=== PATIENT | male | born 1945 | race Caucasian/White ===

== ENCOUNTER → 2021-09-08 09:44 | Outpatient (CLI) | payer MEDICARE, OTHER, SELFPAY ==
--- NOTE | 2021-09-08 09:51 | XR_ITS ---
FINAL REPORT CLINICAL HISTORY: knee pain FINDINGS: 4 views of the right knee were obtained. There is no acute fracture or dislocation. There are mild degenerative changes. There is a questionable loose body posteriorly. IMPRESSION: Mild degenerative change with questionable posterior loose body. Reviewed, Interpreted and Dictated by Trent Marrero III, MD Transcribed by Fracisco Shaikh Authenticated and [facility]
--- NOTE | 2021-09-08 09:51 | XR_ITS ---
FINAL REPORT CLINICAL HISTORY: knee pain FINDINGS: 4 views of the left knee were obtained. There is no acute fracture or dislocation. There are mild degenerative changes. There is a presumed subchondral cyst in the lateral patella. The soft tissues are unremarkable. IMPRESSION: Mild degenerative change. Reviewed, Interpreted and Dictated by Trent Marrero III, MD Transcribed by Fracisco Shaikh Authenticated and [facility]
== END ==
PROVIDERS: PCP Family Medicine; Visit Provider Orthopaedic Surgery
DX: M25.561 Pain in right knee (principal); M25.562 Pain in left knee
CPT/HCPCS: 73564

== ENCOUNTER 2023-05-26 08:10 | Emergency (ER) | payer OTHER, SELFPAY ==
[2023-05-26 08:20] VITALS: BP 137/69; PULSE 89; RESP 20; TEMP 36.4; O2SAT 96; BMI 26.9
--- NOTE | 2023-05-26 08:48 | ED_ITS ---
Discharge Plan Disposition Patient Disposition: Home, Self-Care Condition: Good Prescriptions Prescriptions: New doxycycline monohydrate 100 mg tablet 100 mg PO BID Qty: 20 0RF methylprednisolone [Medrol ([place])] 4 mg tablets,dose pack 4 mg PO DIRECTED Qty: 21 0RF No Action hydrochlorothiazide 25 mg tablet 25 mg PO DAILY Patient Comments: TAKE 1 TABLET BY MOUTH DAILY losartan 100 mg tablet 100 mg PO DAILY Patient Comments: TAKE 1 TABLET BY MOUTH DAILY metoprolol tartrate 25 mg tablet 25 mg PO DAILY Patient Comments: TAKE 1 TABLET BY MOUTH DAILY Referrals Follow up/Referrals: Declan Parisi [Primary Care Provider] - See instructions Activity Restrictions/Add. Instructions Additional Instructions/Restrictions: Follow up with Dr Parisi if not improving Clinical Impressions Clinical Impression: Folliculitis Instructions Patient Instructions: DI for Folliculitis Discharge ED Provider: Sammie Bolden [facility] [place] HPI General Stated complaint: Rash on entire upper body Mode of Arrival: Ambulatory Source of Information: Patient Limitations: No Limitations Time Seen by Provider: 05/26/23 08:48 Description of Symptoms (Recalled from Triage Doc. by RN): PATIENT C/O RASH FORM THE WAIST UP THAT STARTED YESTERDAY MORNING HEENT Symptoms (Recalled from RN notes): No Resp Symptoms (Recalled from RN notes): No Skin Symptoms (Recalled from RN notes): Yes MS Symptoms (Recalled from RN notes): No Functional Status (Recalled from RN notes): WNL History of Present Illness Provider Complaint: Rash on trunk and arms X 1 day. It is itchy. No known new exposures. No fever or malaise. Onset (ago): day(s) (1) Location: chest and upper extremity Relieving factors: none Exacerbating factors: none Treatments prior to arrival: none Related Data Home Medications Medication Instructions Recorded Confirmed hydrochlorothiazide 25 mg tablet 25 mg PO DAILY 05/26/23 05/26/23 losartan 100 mg tablet 100 mg PO DAILY 05/26/23 05/26/23 metoprolol tartrate 25 mg tablet 25 mg PO DAILY 05/26/23 05/26/23 Previous Rx's Medication Instructions Recorded doxycycline monohydrate 100 mg 100 mg PO BID #20 tabs 05/26/23 tablet methylprednisolone 4 mg tablets in 4 mg PO DIRECTED #21 tabs 05/26/23 a dose pack (Medrol ([place])) Allergies Allergy/AdvReac Type Severity Reaction Status Date / Time No Known Allergies Allergy Unverified 09/08/21 10:32 Worker's Comp Is this a Worker's Comp case?: No PFSH [facility] Disclaimer: The information contained in this section may have been updated after the jeison nt was seen, as this information can be updated by other users. Medical History (Updated 05/26/23 @ 08:52 by ALEXA Lebron) History of heart attack Hyperlipidemia Hypertension Social History Smoking Status: Never smoker alcohol intake: never current occupational status: retired Travel in the last 8 weeks: None household members: spouse housing: house ROS Obtained: Yes All systems reviewed & no additional complaints except as documented Integumentary/Breasts Skin/Breast: Reports pruritus and Reports rash Physical Exam General General appearance: alert and in no apparent distress Chest Chest inspection: Present normal inspection and symmetric chest wall rise; Absent tenderness Respiratory Respiratory exam: Present normal lung sounds bilaterally; Absent respiratory distress Cardiovascular Cardiovascular exam: Present regular rate and normal rhythm; Absent JVD Extremities Exam Extremities exam: Present normal inspection, full ROM and normal capillary refill; Absent calf tenderness Neurological Exam Neurological exam: Present alert and oriented X3 Psychiatric Psychiatric exam: Present normal affect and normal mood Skin Skin exam: Present warm, dry, intact, normal color and rash (scattered pustules and erythematous macules) Lymphatic Lymphatic Findings: no adenopathy Medical Decision Making Buster Inquiry Pt receiving controlled substance: No Vital Signs: 05/26/23 08:20 Temperature 97.6 F Temperature Source Oral Pulse Rate [Left Brachial] 89 Respiratory Rate 20 Blood Pressure [Left Arm] 137/69 Blood Pressure Mean [Left Arm] 91 Blood Pressure Source [Left Arm] Automatic Cuff Blood Pressure Position [Left Arm] Sitting 02 Sat by Pulse Oximetry 96 Oxygen Delivery Method Room Air
[2023-05-26 08:52] VITALS: BP 137/69; PULSE 89; RESP 20; TEMP 36.4; O2SAT 96
== END 2023-05-26 08:55 | disposition home or self-care (01) ==
PROVIDERS: Emergency Provider Physician Assistant; PCP Family Medicine
DX: L73.9 Follicular disorder, unspecified (principal); I10 Essential (primary) hypertension; E78.5 Hyperlipidemia, unspecified
CPT/HCPCS: 99204; 99212; G0463

== ENCOUNTER 2023-10-26 09:32 | Outpatient (CLI) | payer OTHER, SELFPAY ==
--- NOTE | 2023-10-26 09:37 | XR_ITS ---
FINAL REPORT CLINICAL HISTORY: Left knee pain COMPARISON: 09/08/2021 FINDINGS: LEFT KNEE 3 views of the left knee were obtained. There is no acute fracture or dislocation. Visualized joint spaces are normally aligned. Soft tissues are unremarkable. IMPRESSION: No acute bony abnormality. Reviewed, Interpreted and Dictated by Rodney Harmon MD Transcribed by Carey Roland Authenticated and [facility]
== END 2023-10-26 23:59 | disposition home or self-care (01) ==
LOC: RAD 09:34
PROVIDERS: PCP Family Medicine; Visit Provider Orthopaedic Surgery
DX: M25.562 Pain in left knee (principal)
CPT/HCPCS: 73562